=== PATIENT | female | born 1955 | race Asian ===

== ENCOUNTER → 2016-12-24 | Outpatient (CLI) | payer OTHER | LOC: BRMIMAGING 09:23 | PROVIDERS: ATTEND Family Medicine | DX: Z13.820 Encounter for screening for osteoporosis (principal); M85.80 Other specified disorders of bone density and structure, unspecified site; Z78.0 Asymptomatic menopausal state ==

== ENCOUNTER → 2018-09-15 | Outpatient (CLI) | payer OTHER | LOC: BRMIMAGING 10:55 ==